=== PATIENT | female | born 1990 | race Caucasian/White ===

== ENCOUNTER 2019-02-26 12:01 | Emergency (ER) | payer MEDICAID ==
[~2019-02-26] VITALS: Ht 165.1 cm; Wt 57.0 kg
[2019-02-26] MEDS ORDERED: IBUPROFEN 600MG TABLET PO ONE (17:45)
[2019-02-26 18:45] VITALS: BP 146/90
== END 2019-02-26 18:50 | disposition home or self-care (01) ==
LOC: ER 12:01
DX: S62.396A Other fracture of fifth metacarpal bone, right hand, initial encounter for closed fracture (principal); W18.39XA Other fall on same level, initial encounter; Y93.89 Activity, other specified; Y92.89 Other specified places as the place of occurrence of the external cause; Y99.8 Other external cause status; Z87.891 Personal history of nicotine dependence; Z98.890 Other specified postprocedural states
CPT/HCPCS: 29125; 73110; 73130; 81025; 99283